=== PATIENT | female | born 1950 | race Caucasian/White ===

== ENCOUNTER → 2016-07-13 | Outpatient (CLI) | payer MEDICARE, BC ==
[2015-01-18 15:00] VITALS: BP 138/82
[~2016-07-13] MED LIST: ACET1TAB86 PO; AMIT50TA PO; DOXE25CA PO; DOXY100T PO; FLUT1DIS3 IH; HYDR10TA2 PO; IOHEXOL 240 MG/ML 50ML VIAL. PO ONE; IOHEXOL 300 MG/ML 100ML VIAL. IV ONE; IPRA14.7 IH; IPRA3AMP IH; LISI-338 PO; MORP15TA PO; MORP15TA3 PO; MORP30TA13 PO; OMEP40CA5 PO; OXYC30TA PO; PANT40TA3 PO; POLY17PO29 PO; PRED-220 PO; PRED20TA PO; SERT100T8 PO; [UNRECOGNIZED DRUG - CODE] PO; [UNRECOGNIZED DRUG - CODE] PO
--- NOTE | 2016-07-13 14:32 | KCIC ---
Examination: CT abdomen and pelvis with oral and IV contrast HISTORY: History of weight loss, dysphagia COMPARISON: None TECHNIQUE: Axial CT chest abdomen pelvis are performed with oral and IV contrast. Coronal and sagittal images also performed. Exposure: One or more of the following individualized dose reduction techniques were utilized for this examination: 1. Automated exposure control 2. Adjustment of the mA and/or kV according to patient size 3. Use of iterative reconstruction technique Findings: Minimal bibasilar lung atelectasis. No evidence of free air identified in the abdomen. Mildly dilated intrahepatic bile ducts. There is dilatation full the common bile duct measuring 1.5 cm in transverse dimension. Mildly prominent appearing pancreatic duct. The visualized spleen, adrenal stress appears unremarkable. Mild prominent appearing proximal stomach wall probably related to nondistention. The small bowel is nondilated. Moderate amount of stool identified throughout the colon. Bilateral kidneys enhance symmetrically. Punctate 1 mm intrarenal collecting system calculus identified in the left kidney. There is a small 8 mm cystic structure identified in the right kidney likely a cyst. Mild aortic atherosclerosis. The appendix is not clearly identified Cholecystectomy changes. Mild aortic atherosclerosis. Spinal stimulator leads identified. Mild degenerative changes lumbar spine. IMPRESSION: 1. Dilated appearing intrahepatic and extra hepatic bile ducts probably postcholecystectomy changes. Correlate with liver function tests. 2. Evaluation of the colon is limited due to diffuse amount of stool throughout the colon. 3. Punctate 1 mm calculus identified in the left kidney. Electronically signed by: Laci Roy MD (07/13/2016 2:29 PM)
== END | disposition home or self-care (01) ==
LOC: KCIC CT 10:31
PROVIDERS: ATTEND Physician Assistant
DX: R13.10 Dysphagia, unspecified (principal); R63.4 Abnormal weight loss; J98.11 Atelectasis; I70.0 Atherosclerosis of aorta; M51.36 Other intervertebral disc degeneration, lumbar region
CPT/HCPCS: 74177; Q9966; Q9967

== ENCOUNTER → 2016-07-14 | Day surgery (SDC) | payer MEDICARE, BC ==
[~2016-07-14] MED LIST changes: -IOHEXOL 240 MG/ML 50ML VIAL. PO ONE; -IOHEXOL 300 MG/ML 100ML VIAL. IV ONE; +IV RINGERS,LACTATED 1000ML 1,000 ML IV SCH; +LIDOCAINE 2% PF Vial for OR 5 ML VIAL. ONE; +PROPOFOL 20 ML IV ONE
[2016-07-14 11:57] VITALS: BP 174/94
--- NOTE | 2016-07-18 16:39 | PATHOLOGY ---
PATHOLOGY REPORT * * * * * * * * FINAL DIAGNOSIS: A. Small bowel biopsy: - No significant pathologic abnormalities with focally prominent submucosal Binta's glands. B. Gastric biopsy, antrum: - Chronic gastritis, mild. C. Esophageal biopsy, distal esophagus: - Segments of esophagogastric and gastric mucosa showing chronic inflammation. D. Esophageal biopsy, middle esophagus: - Segments of hyperplastic squamous esophageal mucosa consistent with reflux esophagitis. COMMENT: Sections of the small bowel biopsy reveal segments of duodenal mucosa with focally prominent submucosal Binta's glands. Where best oriented, the mucosal villi appear normal. There are no sprue-like changes or significant inflammatory changes. Sections of the gastric biopsy reveal segments of gastric body and antral/body transition mucosa showing congestion and mild chronic inflammation. An immunoperoxidase stain for Helicobacter is obtained. There are no Helicobacter organisms identified. Sections of the distal esophageal biopsy reveal segments of esophagogastric and gastric mucosa showing mild to moderate chronic inflammation. The squamous esophageal mucosa is hyperplastic. There is no evidence of Sanchez's change, dysplasia, or malignancy. Sections of the middle esophageal biopsy reveal segments of tangentially oriented hyperplastic squamous esophageal mucosa. There are scattered intraepithelial inflammatory cells. The findings are consistent with reflux esophagitis. There is no evidence of Sanchez's change, dysplasia, or malignancy. (JPM:mgcaro; d/t: 07/18/16) Special Stain Performed: Immunoperoxidase stain for Helicobacter (B1) REPORT ELECTRONICALLY SIGNED BY: Nima Garcia M.D. DATE/TIME: 07/18/2016 16:39 * * * * * * * * GROSS PATHOLOGY: A. Received in formalin labeled "Lise Guido, small bowel biopsy," are three segments of granados soft tissue measuring 0.6 x 0.6 x 0.1 cm in aggregate dimensions and ranging from 0.3 to 0.6 cm in maximum dimension. The specimen is submitted entirely in cassette A1. B. Received in formalin labeled "Lise Guido, gastric antrum biopsy," are two segments of granados soft tissue measuring 0.5 x 0.4 x 0.1 cm in aggregate dimensions and ranging from 0.3 to 0.4 cm in maximum dimension. The specimen is submitted entirely in cassette B1. C. Received in formalin labeled "Lise Guido, distal esophageal biopsy," are four segments of granados soft tissue measuring 0.9 x 0.9 x 0.2 cm in aggregate dimensions and ranging from 0.2 to 0.6 cm in maximum dimension. The specimen is submitted entirely in cassette C1. D. Received in formalin labeled "Lise Guido, mid esophageal biopsy," are two segments of granados soft tissue measuring 0.6 x 0.4 x 0.1 cm in aggregate dimensions and ranging from 0.1 to 0.6 cm in maximum dimension. The specimen is submitted entirely in cassette D1. (CAA; 07/15/2016) INITIAL CPT CODE(S): A; 61723 B; 21221, 67546 C; 17920 D; 19235 Professional services performed [place] [facility] [place] [address] Technical services performed by [facility] at [address] [place] [address], [facility] [address] [address]. SPECIMEN(S) RECEIVED: A.Small bowel biopsy B.Gastric/antrum biopsy C.Distal esophageal biopsy D.Mid esophageal biopsy CLINICAL HISTORY: History of ulcers, dysphagia PATIENT: LISE GUIDO /AGE: 1011/16/1950 (Age: 65) PATIENT #: [id number] ALT CASE #: SPECIMEN COLLECTION DATE: 07/14/2016 SPECIMEN RECEIVED DATE: 07/14/2016 [facility] - [address] [place] [address] - PHONE: [phone] * * * END OF REPORT * * *
== END | disposition home or self-care (01) ==
LOC: ENDOS 10:05
PROVIDERS: ATTEND Internal Medicine Gastroenterology
DX: K21.0 Gastro-esophageal reflux disease with esophagitis (principal); K31.89 Other diseases of stomach and duodenum; J44.9 Chronic obstructive pulmonary disease, unspecified; I10 Essential (primary) hypertension; M19.90 Unspecified osteoarthritis, unspecified site; J45.909 Unspecified asthma, uncomplicated; F41.9 Anxiety disorder, unspecified; F32.9 Major depressive disorder, single episode, unspecified; M79.7 Fibromyalgia; J43.9 Emphysema, unspecified; F17.210 Nicotine dependence, cigarettes, uncomplicated; Z88.4 Allergy status to anesthetic agent; Z87.01 Personal history of pneumonia (recurrent); Z88.6 Allergy status to analgesic agent; Z88.1 Allergy status to other antibiotic agents; Z83.3 Family history of diabetes mellitus; Z80.3 Family history of malignant neoplasm of breast; Z82.49 Family history of ischemic heart disease and other diseases of the circulatory system; Z83.71 Family history of colonic polyps; Z72.89 Other problems related to lifestyle
CPT/HCPCS: 43239; 43450; 88305; 88342; J2704

== ENCOUNTER → 2016-10-14 | Outpatient (CLI) | payer MEDICARE, BC ==
[2016-07-14 11:57] VITALS: BP 174/94
[~2016-10-14] MED LIST changes: -IV RINGERS,LACTATED 1000ML 1,000 ML IV SCH; -LIDOCAINE 2% PF Vial for OR 5 ML VIAL. ONE; -PROPOFOL 20 ML IV ONE
--- NOTE | 2016-10-14 15:45 | RAD ---
Abdominal radiograph 10/14/2016 at 1533 hours Indication: Biliary stenosis. History of cholecystectomy and tubal ligation. Comparison: CT abdomen/pelvis 07/13/2016 Technique: Single supine view of the abdomen is provided. Findings: Battery pack projects over the right hemipelvis with spinal stimulation leads entering the epidural space at the L1 vertebral level. Cholecystectomy clips are identified in the right upper quadrant. A biliary stent is identified in the right hemiabdomen with the distal pigtail projecting over a bowel loop. No portal venous gas is identified. Supine technique limits evaluation for free intraperitoneal air. There are no dilated loops of small or large bowel. Phleboliths are identified within the pelvis. Splenic vascular calcifications are noted. Impression: 1. New biliary stent from prior CT examination from 07/13/2016. 2. Nonobstructive bowel gas pattern.
== END | disposition home or self-care (01) ==
LOC: RAD 15:14
PROVIDERS: ATTEND Internal Medicine Gastroenterology
DX: K83.1 Obstruction of bile duct (principal); Z90.49 Acquired absence of other specified parts of digestive tract
CPT/HCPCS: 74000

== ENCOUNTER → 2016-10-27 | Outpatient (CLI) | payer MEDICARE, BC ==
[2016-07-14 11:57] VITALS: BP 174/94
--- NOTE | 2016-10-27 16:22 | RAD ---
Indication dilated bile duct. Reported pancreatic stent. A single KUB was obtained. Note is made of a previous examination 10/14/2016. The abdominal gas pattern is normal. Clips are seen in the area of the gallbladder fossa. A neuro stimulating device is noted. There is vascular calcification. There is a foreign body, compatible with a stent (compatible with a biliary or pancreatic stent) in the pelvis, probably in the large bowel. IMPRESSION: No acute finding. Stent in the pelvis, probably in the large bowel
== END | disposition home or self-care (01) ==
LOC: RAD 15:05
PROVIDERS: ATTEND Internal Medicine Gastroenterology
DX: K83.8 Other specified diseases of biliary tract (principal); K83.1 Obstruction of bile duct
CPT/HCPCS: 74000

== ENCOUNTER → 2016-12-28 | Outpatient (CLI) | payer MEDICARE, BC ==
[2016-07-14 11:57] VITALS: BP 174/94
[2016-12-28 09:45] LABS: BASO % 1 % (0-3); EOS % 4 % (0-3); HEMATOCRIT 40.8 % (36.0-47.0); HEMOGLOBIN 13.1 g/dL (12.0-15.5); LYMPH # 1.9 x10^3/uL (1.0-4.8); LYMPH % 36 % (24-48); MEAN CORPUSCULAR HEMOGLOBIN 31 pg (25-35); MEAN CORPUSCULAR HGB CONC 32 g/dL (31-37); MEAN CORPUSCULAR VOLUME 97 fL (79-100); MONO % 11 % (0-9); NEUT % 48 % (31-73); PLATELET COUNT 203 x10^3/uL (140-400); RED BLOOD COUNT 4.22 x10^6/uL (3.50-5.40); WHITE BLOOD COUNT 5.3 x10^3/uL (4.0-11.0)
[2016-12-28 09:56] LABS: ALBUMIN 3.7 g/dL (3.4-5.0); ALBUMIN/GLOBULIN RATIO 1.2 (1.0-1.7); CREATININE 0.7 mg/dL (0.6-1.0); GFR 84.2; POTASSIUM 3.6 mmol/L (3.5-5.1); TOTAL BILIRUBIN 0.4 mg/dL (0.2-1.0); TOTAL PROTEIN 6.7 g/dL (6.4-8.2)
[2016-12-28 09:57] LABS: CHOLESTEROL/HDL RATIO 2.6
[2016-12-28 10:04] LABS: FREE T4 0.94 ng/dL (0.76-1.46)
== END | disposition home or self-care (01) ==
LOC: LAB 09:12
PROVIDERS: ATTEND Family Medicine
DX: I10 Essential (primary) hypertension (principal); F32.9 Major depressive disorder, single episode, unspecified; D64.9 Anemia, unspecified; R53.83 Other fatigue
CPT/HCPCS: 36415; 80053; 80061; 82043; 82533; 82570; 84439; 84443; 85025

== ENCOUNTER → 2021-01-27 | Day surgery (SDC) | payer MEDICARE, BC ==
[~2021-01-27] VITALS: Ht 160 cm; Wt 55.9 kg
[~2021-01-27] MED LIST changes: +ASPI325T8 PO; +CLOP75TA PO; +DONE23TA3 PO; +DONE5TAB56 PO; +FLUT1BLS15 IH; +GLYCOPYRROLATE 1 MG/5 ML VIAL. ONE; -IPRA3AMP IH; +IPRA3AMP29 IH; +IV RINGERS,LACTATED 1000ML 1,000 ML IV SCH; +LIDOCAINE 2% PF 5 ML VIAL. ONE; -LISI-338 PO; +LISI5TAB15 PO; +METO25TA4 PO; +MORP-15 PO; -MORP15TA3 PO; -OMEP40CA5 PO; +OMEP40CA7 PO; -OXYC30TA PO; +OXYC30TA3 PO; -PANT40TA3 PO; +PANT40TA77 PO; +PHENYLEPHRINE in 0.9% NACL PF 1 MG/10 ML SYRINGE. IV ONE; +PROPOFOL 10 MG/ML (20ML) VIAL. IV ONE; +SERT-268 PO; -SERT100T8 PO
[2021-01-27 06:44] VITALS: BP 164/97
--- NOTE | 2021-01-27 07:41 | CONS ---
DATE OF CONSULTATION: 01/27/2021 UPDATED HISTORY AND PHYSICAL REFERRING PHYSICIAN: Dr. Fredrick Cruz. REASON FOR CONSULTATION: History of polyps, dysphagia and abdominal pain. HISTORY OF PRESENT ILLNESS: A 70-year-old female whose past medical history is significant for hypertension, migraines, COPD, sleep apnea and colonic polyps, seen for recurrent dysphagia, previously been dilated with improvement in her symptoms until recently. She also has a remote history of polyps. Abdominal pain is improved when she takes MiraLax for constipation. There has been no bleeding. No change in weight or appetite. She is otherwise without additional complaints. PAST MEDICAL HISTORY: Hypertension, COPD, GERD, history of colonic polyps, constipation, fibromyalgia. ALLERGIES: ERYTHROMYCIN, INDOMETHACIN. MEDICATIONS: Include albuterol, amitriptyline, aspirin, Plavix, Aricept, doxepin, doxycycline, Trelegy Ellipta inhaler, hydroxyzine, ipratropium, albuterol, Combivent, lisinopril, metoprolol, omeprazole, oxycodone, polyethylene glycol, sertraline. FAMILY HISTORY: Significant for heart disease, colon cancer, diabetes, CVAs. PAST SURGICAL HISTORY: Tubal ligation, hysterectomy, right shoulder replacement, cholecystectomy, cataracts. REVIEW OF SYSTEMS: Per records. PHYSICAL EXAMINATION: GENERAL: Reveals a thin female who is alert, cooperative, in mild distress. VITAL SIGNS: Temperature 97.5, pulse is 100, respiratory rate is 22. LUNGS: Clear. CARDIOVASCULAR: Reveals an S1, S2, without S3, S4 or appreciable murmur. ABDOMEN: Reveals a soft abdomen, normal bowel sounds, without appreciable hepatosplenomegaly. Multiple surgical incisions. IMPRESSION AND PLAN: 1. Dysphagia, most likely secondary to recurrent Schatzki's ring. Dilatation is recommended. Risks and benefits have been discussed. The patient is willing to proceed. 2. History of colonic polyps, abdominal pain, diverticular disease and constipation likely contributing. We will recommend interval colonoscopy. FRIDA TAI: Shahzad TID: [id number]
[2021-01-27 08:18] VITALS: BP 156/90
== END | disposition home or self-care (01) ==
LOC: ENDOS 06:18
PROVIDERS: ATTEND Internal Medicine Gastroenterology
DX: R10.9 Unspecified abdominal pain (principal); R13.10 Dysphagia, unspecified; K64.0 First degree hemorrhoids; K57.30 Diverticulosis of large intestine without perforation or abscess without bleeding; K63.89 Other specified diseases of intestine; K31.89 Other diseases of stomach and duodenum; K59.00 Constipation, unspecified; I10 Essential (primary) hypertension; K21.9 Gastro-esophageal reflux disease without esophagitis; E78.00 Pure hypercholesterolemia, unspecified; J43.9 Emphysema, unspecified; G47.30 Sleep apnea, unspecified; M19.90 Unspecified osteoarthritis, unspecified site; F41.9 Anxiety disorder, unspecified; F32.9 Major depressive disorder, single episode, unspecified; F17.210 Nicotine dependence, cigarettes, uncomplicated; Z86.73 Personal history of transient ischemic attack (TIA), and cerebral infarction without residual deficits; Z86.010 Personal history of colon polyps; Z98.51 Tubal ligation status; Z90.49 Acquired absence of other specified parts of digestive tract; Z90.710 Acquired absence of both cervix and uterus; Z98.890 Other specified postprocedural states; Z82.49 Family history of ischemic heart disease and other diseases of the circulatory system; Z83.3 Family history of diabetes mellitus; Z80.0 Family history of malignant neoplasm of digestive organs; Z79.82 Long term (current) use of aspirin; Z79.899 Other long term (current) drug therapy; Z88.1 Allergy status to other antibiotic agents; Z88.8 Allergy status to other drugs, medicaments and biological substances
CPT/HCPCS: 43235; 43450; 45378; J2370; J2704; J3490

== ENCOUNTER 2021-04-01 13:15 | Emergency (ER) | payer MEDICARE, BC ==
[2021-01-27 08:18] VITALS: BP 156/90
[~2021-04-01 13:15] MED LIST changes: -GLYCOPYRROLATE 1 MG/5 ML VIAL. ONE; -IV RINGERS,LACTATED 1000ML 1,000 ML IV SCH; -LIDOCAINE 2% PF 5 ML VIAL. ONE; -PHENYLEPHRINE in 0.9% NACL PF 1 MG/10 ML SYRINGE. IV ONE; -PROPOFOL 10 MG/ML (20ML) VIAL. IV ONE
== END 2021-04-01 13:42 | disposition left against medical advice (07) ==
LOC: ER 13:15
DX: S99.929A Unspecified injury of unspecified foot, initial encounter (principal); Z53.21 Procedure and treatment not carried out due to patient leaving prior to being seen by health care provider; X58.XXXA Exposure to other specified factors, initial encounter; Y93.89 Activity, other specified; Y92.89 Other specified places as the place of occurrence of the external cause; Y99.8 Other external cause status

== ENCOUNTER 2021-04-24 17:40 | Inpatient (IN) | payer MEDICARE, BC ==
[~2021-04-24] VITALS: Ht 160 cm; Wt 56.1 kg
[2021-04-24 18:17] LABS: BASO % 1 % (0-3); EOS # 0.1 x10^3/uL (0.0-0.7); EOS % 2 % (0-3); HEMATOCRIT 36.5 % (36.0-47.0); HEMOGLOBIN 11.8 g/dL (12.0-15.5); LYMPH # 1.4 x10^3/uL (1.0-4.8); LYMPH % 25 % (24-48); MEAN CORPUSCULAR HEMOGLOBIN 30 pg (25-35); MEAN CORPUSCULAR HGB CONC 32 g/dL (31-37); MEAN CORPUSCULAR VOLUME 92 fL (79-100); MONO # 0.6 x10^3/uL (0.0-1.1); MONO % 11 % (0-9); NEUT # 3.3 x10^3/uL (1.8-7.7); NEUT % 62 % (31-73); PLATELET COUNT 189 x10^3/uL (140-400); RED BLOOD COUNT 3.96 x10^6/uL (3.50-5.40); RED CELL DISTRIBUTION WIDTH 14.8 % (11.5-14.5); WHITE BLOOD COUNT 5.4 x10^3/uL (4.0-11.0)
[2021-04-24 18:20] LABS: CALCIUM 8.6 mg/dL (8.5-10.1); CREATININE 1.3 mg/dL (0.6-1.0); GFR 40.7; POTASSIUM 3.6 mmol/L (3.5-5.1)
[2021-04-24 18:26] LABS: ALBUMIN 3.2 g/dL (3.4-5.0); ALBUMIN/GLOBULIN RATIO 1.1 (1.0-1.7); TOTAL BILIRUBIN 0.3 mg/dL (0.2-1.0); TOTAL PROTEIN 6.2 g/dL (6.4-8.2)
--- NOTE | 2021-04-24 18:27 | RAD ---
Exam: Chest one view INDICATION: Hypotension with standard TECHNIQUE: Frontal view of the chest Comparisons: None FINDINGS: The cardiomediastinal silhouette and pulmonary vessels are within normal limits. The lung and pleural spaces are clear. IMPRESSION: No acute cardiopulmonary process. Electronically signed by: Jelly Wilson MD (04/24/2021 6:24 PM) [facility]
[2021-04-24] MEDS ORDERED: IV NORMAL SALINE 1000ML BAG 1,000 ML IV ONE ×4 (18:30→22:45)
--- NOTE | 2021-04-24 18:36 | PHYS DOC ---
Past Medical History Past Medical History: COPD Additional Past Medical Histor: chronic back pain Past Surgical History: Cholecystectomy, Hysterectomy, Tubal ligation Additional Past Surgical Histo: back,shoulder, HEART STENTS X'S 2 Smoking Status: Current Every Day Smoker Alcohol Use: None Drug Use: None General Adult EDM: Chief Complaint: DIZZY/LIGHT HEADED HPI: HPI: Patient is a 70-year-old female who presents to the emergency department complaining of dizziness when she stands that started today just prior to noon. Patient was concerned and called 911 who told her she was having orthostatic drops and recommended she come to the emergency department for evaluation. Patient denies chest pain, chest palpitations, chest or nasal congestion. Patient denies cough, recent fever or chills. Patient denies abdominal pain, nausea, vomiting, diarrhea. Patient denies diaphoretic episodes. Patient states she experiences mild dizziness shortly after she stands to walk a few steps this seems to resolve, patient states she is concerned that she is having blood pressure problems. Patient denies syncopal episodes. Denies falling and hitting her head. Denies vision changes. Denies headaches. Patient reports she is a daily cigarette smoker and is trying to quit. Patient states she does not drink water and prefers to drink Coca-Cola and coffee only. Patient reports a history of chronic back pains and has a neurostimulator, wears 3 L of O2 at home for COPD/emphysema, reports taking 30 mg OxyContin daily for chronic back pain. Reports other home medications as Plavix 75 mg, amitriptyline 100 mg, sertraline 100 mg, Aricept 10 mg, trilogy, ProAir, albuterol nebulizer treatments. Patient also uses nystatin cream as needed. Patient denies other physical complaints or physical concerns. Review of Systems: Review of Systems: 14 body systems of review of systems have been reviewed. See HPI for pertinent positives and negative responses, otherwise all other systems are negative, nonpertinent or noncontributory. Constitutional: Negative except as outlined in HPI above. Skin: Negative except as outlined in HPI above. Eyes: Negative except as outlined in HPI above. HENT: Negative except as outlined in HPI above. Respiratory: Negative except as outlined in HPI above. Cardiovascular: Negative except as outlined in HPI above. GI: Negative except as outlined in HPI above. : Negative except as outlined in HPI above. Musculoskeletal: Negative except as outlined in HPI above. Integument: Negative except as outlined in HPI above. Neurologic: Negative except as outlined in HPI above. Endocrine: Negative except as outlined in HPI above. Lymphatic: Negative except as outlined in HPI above. Psychiatric: Negative except as outlined in HPI above. Heart Score: C/O Chest Pain: No Risk Factors: Risk Factors: DM, Current or recent (<one month) smoker, HTN, HLP, family history of CAD, obesity. Risk Scores: Score 0 - 3: 2.5% MACE over next 6 weeks - Discharge Home Score 4 - 6: 20.3% MACE over next 6 weeks - Admit for Clinical Observation Score 7 - 10: 72.7% MACE over next 6 weeks - Early Invasive Strategies Current Medications: Current Medications Medications (Trade) Dose Ordered Sig/Scarlett Start Time Stop Time Status Last Admin Dose Admin Albuterol/ Ipratropium (Duoneb) 3 ml 1X ONCE 04/24/21 20:30 04/24/21 20:31 04/24/21 20:30 3 ML Prednisone (Prednisone) 50 mg 1X ONCE 04/24/21 20:30 04/24/21 20:31 Sodium Chloride 1,000 ml @ 1,000 mls/hr 1X ONCE 04/24/21 20:00 04/24/21 20:59 04/24/21 19:14 1,000 MLS/HR Current Medications Medications (Trade) Dose Ordered Sig/Scarlett Start Time Stop Time Status Last Admin Dose Admin Sodium Chloride 1,000 ml @ 1,000 mls/hr 1X ONCE 04/24/21 18:15 04/24/21 19:14 UNV Allergies: Allergies: Allergies Coded Allergies Type Severity Reaction Last Updated Verified Erythromycin Lactobionate Allergy Intermediate GI 01/27/21 Yes indomethacin Allergy Intermediate 01/27/21 Yes indomethacin sodium Allergy Intermediate 01/27/21 Yes Physical Exam: PE: Constitutional: Well developed, well nourished, no acute distress, non-toxic appearance. 70-year-old female in no apparent distress. HENT: Normocephalic, atraumatic. Oral mucosa sticky, oropharynx pink, no deep tissue infectious process appreciated, patient is speaking in normal sentences, there is no drooling, no trismus, bilateral TMs intact and within normal limits, no lymphadenopathy of the head or neck appreciated. Eyes: Conjunctiva normal, no discharge. No scleral icterus appreciated Neck: Normal range of motion, no stridor. Cardiovascular: No cyanosis appreciated, distal cap refill less than 2 seconds. Regular rate and rhythm presentation, performed orthostatics at bedside, lying 131/75 with pulse 88, sitting 138/66 with pulse 81, standing 99/58 with pulse 88, patient did complain of dizziness shortly after standing. There was no vertical or horizontal nystagmus appreciated. Lungs & Thorax: Patient is in no respiratory distress, lung sounds expiratory wheezes all lung gallagher, no expiratory wheezes appreciated, there is no accessory muscle use appreciated, normal work of breathing, patient is wearing h er home dose of 3 L O2 per nasal cannula, Abdomen: Nontender, no abnormalities noted. Skin: Warm, dry, no erythema, no rash. Back: No tenderness, no deformities. Extremities: No tenderness, no cyanosis, no clubbing, ROM intact, no edema. Neurologic: Alert and oriented X 3, normal motor function, normal sensory function, no focal deficits noted. Psychologic: Affect normal, judgement normal, mood normal. Current Patient Data: Vital Signs: Vital Signs Date Time Temp Pulse Resp B/P (MAP) Pulse Ox O2 Delivery O2 Flow Rate FiO2 04/24/21 17:40 88 16 147/83 (104) 98 Nasal Cannula 3.0 EKG: EKG: EKG performed at 1747 by ED nursing staff normal sinus rhythm without other ectopy, MS interval 0.160, QRS interval 0.080, there is no acute STEMI, no ACS, no acute ischemia appreciated, EKG interpreted by ED attending physician Dr. Medrano. Note*EKG did have artifact, the PQRST wave/complexes were appreciated, reviewed this with Dr. Medrano, most likely related to patient's neurostimulator. Radiology/Procedures: Radiology/Procedures: REASON: Hypotension when standing PROCEDURE: CHEST AP ONLY Exam: Chest one view INDICATION: Hypotension with standard TECHNIQUE: Frontal view of the chest Comparisons: None FINDINGS: The cardiomediastinal silhouette and pulmonary vessels are within normal limits. The lung and pleural spaces are clear. IMPRESSION: No acute cardiopulmonary process. Electronically signed by: Jelly Wilson MD (04/24/2021 6:24 PM) [facility] SYSTEM[facility]athalia Course & Med Decision Making: Course & Med Decision Making Pertinent Labs and Imaging studies reviewed. (See chart for details) 70-year-old female, vital signs reviewed, presents to the emergency department with chief complaint of dizziness with standing which started today. Physical examination concerning for dehydration. Patient does have dry to sticky oral mucosa and is orthostatic when standing. Will order EKG, saline lock, blood pressure monitoring, cardiac monitoring, continuous pulse ox monitoring, will place patient on her home 3 L of O2, chest x-ray, CBC, CMP, high-sensitivity troponin I, urinalysis assay. Will give 1 L normal saline. Will give A&A nebul izer treatment related to expiratory wheezing, 50 mg p.o. prednisone. Will reevaluate after period of time. Patient continues to have expiratory wheezing throughout all lung gallagher after ANDREINA treatment, will order additional albuterol treatment. Ambulated patient, patient continues to complain of dizziness after ambulation, there is no vertical or horizontal nystagmus appreciated, the patient maintained a steady gait with ambulation. Discussed with patient recommended admission related to dizziness and COPD exacerbation. Patient is amendable to ED admission planning. Called and discussed patient case and ED work-up with inpatient management physician Dr. Redmond who agrees patient's case warrants admission to the telemetry unit. Patient is awaiting hospital bed assignment by electrician helper powerhouse. Cinthia Disclaimer: Cinthia Disclaimer: This electronic medical record was generated, in whole or in part, using a voice recognition dictation system. Departure Departure Impression: Primary Impression: Dizziness Additional Impressions: Near syncope COPD exacerbation Disposition: ADMITTED INPATIENT Admitting Physician: HIMS (Admit to Dr. Redmond to telemetry) Condition: GUARDED Referrals: RAHEL HALEY (PCP) DEX JOHNSON APRN Apr 24, 2021 18:36
[2021-04-24] MEDS ORDERED: predniSONE 10 MG TABLET PO ONE (20:30)
[2021-04-24] MEDS ORDERED: IPRATRPIUM/ALBUTEROL 0.5/2.5MG 3 ML NEBU. NEB ONE (20:30)
[2021-04-24 20:41] LABS: CALCIUM 7.4 mg/dL (8.5-10.1); CREATININE 1.1 mg/dL (0.6-1.0); GFR 49.4
[2021-04-24] MEDS ORDERED: ALBUTEROL SULFATE 2.5 MG/3 ML NEBU. NEB ONE (21:00)
[2021-04-24 21:28] LABS: BILIRUBIN,URINE NEGATIVE (NEG); CLARITY,URINE CLEAR; COLOR,URINE YELLOW; NITRITE,URINE NEGATIVE (NEG); PROTEIN,URINE NEGATIVE (NEG-TRACE); UROBILINOGEN,URINE 0.2 mg/dL (0.2 mg/dL)
[2021-04-24 21:30] LABS: BACTERIA,URINE 0 /HPF (0-FEW); WBC,URINE OCC /HPF (0-4)
[2021-04-24 22:09] VITALS: BP_SYST 114; BP_SYST 124; BP_SYST 142; BP_DIAS 61; BP_DIAS 66; BP_DIAS 73
[2021-04-24] MEDS ORDERED: MONT10TA49 PO (22:22)
[2021-04-24] MEDS ORDERED: NYST100054 PO (22:22)
[2021-04-24] MEDS ORDERED: PANT40TA77 PO (22:22)
[2021-04-24] MEDS ORDERED: CELE200C PO (22:22)
[2021-04-24] MEDS ORDERED: PRED50TA PO (22:38)
[2021-04-24] MEDS ORDERED: IPRA3AMP29 NEB (22:38)
[2021-04-24] MEDS ORDERED: hydrOXYzine 10 MG TABLET PO PRN (22:45)
[2021-04-24 23:22] VITALS: BP_SYST 127; BP_SYST 133; BP_DIAS 65; BP_DIAS 82
[2021-04-24] MEDS ORDERED: MONTELUKAST SODIUM 10 MG TABLET. PO ONE (23:30)
[2021-04-25 03:22] VITALS: BP 142/76
[2021-04-25 07:00] VITALS: BP 142/77
--- NOTE | 2021-04-25 07:06 | NUR ---
Orthostatics were taken when pt got to the floor 04/24 @ 2200. Lying 142/73, sitting 124/61, and standing 114/66. Dr. Redmond wanted another set this AM 04/25. Report was given to day shift nurse.
[2021-04-25 11:00] VITALS: BP_SYST 112; BP_SYST 128; BP_SYST 132; BP_DIAS 56; BP_DIAS 63; BP_DIAS 71
[2021-04-25] MEDS ORDERED: NICOTINE 21MG PATCH. TD PRN (13:00)
--- NOTE | 2021-04-25 13:11 | SSS ---
DATE OF SERVICE: 04/25/2021 ADMIT DATE: 04/24/2021 SHORT STAY SUMMARY CHIEF COMPLAINT: Lightheadedness. HISTORY OF PRESENT ILLNESS: The patient is a pleasant 70-year-old female who probably smokes too much. She states she also has 2 previous coronary stents who presented with dizziness. She called 911. They noted that her to be orthostatic. At that time, she denied any chest pain. The patient was admitted overnight for observation. This morning, I am examining her in room 532 where she is asking to go home. States she feels better. PAST MEDICAL HISTORY: CAD with 2 previous stents, tobacco abuse, COPD, cholecystectomy, hysterectomy, tubal ligation, chronic back pain, shoulder surgery. ALLERGIES: ERYTHROMYCIN, INDOMETHACIN. FAMILY HISTORY: Hypertension. SOCIAL HISTORY: She smokes. No drink or drugs. She is retired. MEDICATIONS: Reviewed, please refer to the MRAD. REVIEW OF SYSTEMS: GENERAL: No history of weight change, weakness or fevers. SKIN: No bruising, hair changes or rashes. EYES: No blurred, double or loss of vision. NOSE AND THROAT: No history of nosebleeds, hoarseness or sore throat. HEART: No history of palpitations, chest pain or shortness of breath on exertion. LUNGS: Denies cough, hemoptysis, wheezing or shortness of breath. GASTROINTESTINAL: Denies changes in appetite, nausea, vomiting, diarrhea or constipation. GENITOURINARY: No history of frequency, urgency, hesitancy or nocturia. NEUROLOGIC: Denies history of numbness, tingling, tremor or weakness. PSYCHIATRIC: No history of panic, anxiety or depression. ENDOCRINE: No history of heat or cold intolerance, polyuria or polydipsia. EXTREMITIES: Denies muscle weakness, joint pain, pain on walking or stiffness. PHYSICAL EXAMINATION: VITALS: Within normal limits and are stable. GENERAL: No apparent distress. Alert and oriented. HEENT: Normal cephalic atraumatic, external auditory canals are patent EYES: Extraocular muscles are intact, pupils are equally round and reactive to light and accommodation MUSCULOSKELETAL: Well developed, well nourished, good range of motion ENDOCRINE: No thyromegaly was palpated LYMPHATICS: No cervical chain or axillary nodes were noted HEMATOPOIETIC: No bruising NECK: Supple, no JVD, no thyromegaly was noted. LUNGS: Clear to auscultation in all lung gallagher without rhonchi or wheezing. HEART: RRR, S1, S2 present. Peripheral pulses intact, no obvious murmurs were noted. ABDOMEN: Soft, nontender. Positive bowel sounds no organomegaly, normal bowel sounds. EXTREMITIES: Without any cyanosis, clubbing, or edema. Pedal pulses intact, Homans sign is negative. NEUROLOGIC: Normal speech, normal tone. A and O x 3, moves all extremities, no obvious focal deficits. PSYCHIATRIC: Normal affect, normal mood. Stable. SKIN: No ulcerations or rashes, good skin turgor, no jaundice. VASCULAR: Good capillary refill, neurovascular bundle appears to be intact. LABORATORY DATA: Troponin is 9. ASSESSMENT AND PLAN: Resolving dizziness secondary to orthostasis and in a middle-aged female with the above noted comorbidities. Clinically, she looks great. She wants to go home. I am going to arrange for her to see Cardiology as an outpatient. I gave her a prescription with the phone number on it. DISPOSITION: Home. ACTIVITY: As tolerated. DIET: Low sodium. MEDICATIONS: Please see the MRAD. Doxycycline 100 b.i.d., nystatin, Aricept 28 mg at bedtime, albuterol, Atrovent, Plavix 75 a day, metoprolol 25 b.i.d., lisinopril 5 a day, aspirin 325 a day, Celebrex 200 a day, oxycodone p.r.n., 7.5 q. 3, amitriptyline 50 at bedtime, doxepin 25 at bedtime, sertraline 100 a day, hydroxyzine 10 p.r.n., Trelegy Ellipta, Singulair 10 a day, MiraLax 17 grams daily p.r.n., omeprazole 40 a day and prednisone 50 mg a day. TOTAL TIME: 32 minutes. ACE/RICK DR: ACE/venus TID: [id number]
[2021-04-25 15:00] VITALS: BP 147/79
--- NOTE | 2021-04-25 15:44 | NUR ---
Discharge Note: [facility] [place] Discharge instructions and discharge home medications reviewed with Patient and a copy given. All questions have been answered and understanding verbalized. The following instructions and handouts were given: worsening symptoms, follow up, cardiology contacts, medications, and smoking cessation inforamtion. Discontinued lines and drains: IV discontinued, telemetry removed, and skin intact. Patient discharged to home with spouse via private transportation.
[2021-04-25] MEDS ORDERED: MONTELUKAST SODIUM 10 MG TABLET. PO SCH (21:00)
== END 2021-04-25 15:30 | disposition home or self-care (01) | DRG 312 ==
LOC: ER 17:40 → 5 NORTH 20:30
PROVIDERS: ADMIT Internal Medicine; ATTEND Internal Medicine
DX: I95.1 Orthostatic hypotension (principal); F17.210 Nicotine dependence, cigarettes, uncomplicated; G89.29 Other chronic pain; I25.10 Atherosclerotic heart disease of native coronary artery without angina pectoris; J43.9 Emphysema, unspecified; Z82.49 Family history of ischemic heart disease and other diseases of the circulatory system; Z90.710 Acquired absence of both cervix and uterus; Z95.5 Presence of coronary angioplasty implant and graft; Z98.51 Tubal ligation status; Z90.49 Acquired absence of other specified parts of digestive tract; Z88.1 Allergy status to other antibiotic agents; Z88.8 Allergy status to other drugs, medicaments and biological substances
CPT/HCPCS: 36415; 71045; 80048; 80053; 81001; 84484; 85025; 94640; 94760; 96360; 96361; J7030; J7512; 99285-25; G0378; J7613